=== PATIENT | female | born 1995 | race Caucasian/White ===

== ENCOUNTER 2017-12-02 16:01 | Emergency (ER) | payer MEDICAID, SELFPAY ==
[2017-12-02 16:03] VITALS: BP 157/96; PULSE 138; RESP 20; TEMP 37.1; O2SAT 92; BMI 46.1
[2017-12-02 16:25] VITALS: O2SAT 100
[2017-12-02 16:38] VITALS: BP 125/77; PULSE 82; RESP 22
[2017-12-02 16:54] VITALS: PULSE 106; RESP 24
[2017-12-02] MEDS: Ipratropium/Albuterol Sulfate 3 ML AMPUL.NEB INHALATION (16:54)
[2017-12-02] MEDS: Albuterol 2.5 MG/3 ML VIAL.NEB. INHALATION (16:55)
[2017-12-02] MEDS: 0.9% Normal Saline 1,000 ML 1000 ML IV (16:58)
[2017-12-02] MEDS: Ondansetron 4 MG/2 ML Vial IV (16:58)
[2017-12-02] MEDS: MethylPREDNISolone 125 MG/2 ML Vial IV (16:58)
--- NOTE | 2017-12-02 17:15 | RAD_ITS ---
STUDY: X-RAY CHEST REASON FOR EXAM: Female, 22 years old. Cough, shortness of breath TECHNIQUE: Frontal and lateral views of the chest were obtained. COMPARISON: June 19, 2012 FINDINGS: The lungs are underaerated. There are no focal airspace opacities. There is no demonstrated pleural abnormality. The cardiac silhouette is normal in size. The mediastinum and hilar regions are unremarkable. Normal visualized pulmonary arteries. Normal visualized aortic arch and descending thoracic aorta. The thoracic spine is unremarkable. The visualized ribs, clavicles, and shoulders are unremarkable. There is no demonstrated abnormality of the visualized upper abdomen. RAD/Chest PA and Lateral IMPRESSION: There is no evidence of focal consolidation or pleural effusion. Electronically Signed: Raina Rose MD at 17:36 EST Tel Direct: [phone], Service support ,
--- NOTE | 2017-12-02 18:28 | ED.VISSUMM ---
- ER Visit Summary Date of Service: 12/02/17 Chief Complaint: Cough and wheezing History of Present Illness: The patient is a 22 F currently 14 weeks due April 29. Patient states that she has had a cough and wheezing for the last 3 days. Gradual. She denies any chest pain. She denies any hemoptysis. Is also had some mild nausea vomiting. This is her first . She denies any abdominal pain. She denies any vaginal bleeding or dysuria. Subjectively she has felt feverish and chilled. Physical Examination: Young female no acute distress. Vital signs are stable she is tachycardic to 138. Her pulse ox is 90% on room air no hypoxia. H EENT exam unremarkable. Neck nontender no JVD. Lungs prolonged respiratory phase and wheezing throughout. No rales or rhonchi. Dry cough. Heart tachycardic rate about 130 no murmurs. Abdomen soft nontender nondistended no giving way or masses gravid nontender uterus. Extremities moves all 4. Calves nontender no edema no cords. Neurologically she is awake and alert. Test Results: Chest x-ray 2 views show no acute abnormality read both myself the radiologist. heart tones are 142. Emergency Department Course and Treatment: This is doing much better on repeat exam at 1820. She was given a liter normal saline. IV Zofran. Her nausea is resolved. She is given IV Solu-Medrol and aerosols and her wheezing is resolved. She feels comfortable being discharged to home. Clinically she looks much better. Treatment Plan: Discharged home with prednisone 40 mg a day for 1 week. Proventil inhaler. And Zofran for nausea. Treated for viral URI with bronchospasm. She will follow-up with her primary care physician and [employer] physician called Dr. Colmenares at the [facility]. Return if worse. Disposition: Discharge Impression: Acute viral URI with bronchospasm Nausea and vomiting 14 weeks This note was generated with Grouper dictation software. It may contain incorrect words, spelling, and punctuation that were not noted in review of the chart prior to signing ED Disposition - Plan for ED Patient: Chief Complaint: Cough Referrals: Eli Matos, OLIVIA-C [Primary Care Provider] -
--- NOTE | 2017-12-02 18:33 | ED.DCSUM_ITS ---
- ER Visit Summary Date of Service: 12/02/17 Chief Complaint: Cough and wheezing History of Present Illness: The patient is a 22 F currently 14 weeks due April 29. Patient states that she has had a cough and wheezing for the last 3 days. Gradual. She denies any chest pain. She denies any hemoptysis. Is also had some mild nausea vomiting. This is her first . She denies any abdominal pain. She denies any vaginal bleeding or dysuria. Subjectively she has felt feverish and chilled. Physical Examination: Young female no acute distress. Vital signs are stable she is tachycardic to 138. Her pulse ox is 90% on room air no hypoxia. H EENT exam unremarkable. Neck nontender no JVD. Lungs prolonged respiratory phase and wheezing throughout. No rales or rhonchi. Dry cough. Heart tachycardic rate about 130 no murmurs. Abdomen soft nontender nondistended no giving way or masses gravid nontender uterus. Extremities moves all 4. Calves nontender no edema no cords. Neurologically she is awake and alert. Test Results: Chest x-ray 2 views show no acute abnormality read both myself the radiologist. heart tones are 142. Emergency Department Course and Treatment: This is doing much better on repeat exam at 1820. She was given a liter normal saline. IV Zofran. Her nausea is resolved. She is given IV Solu-Medrol and aerosols and her wheezing is resolved. She feels comfortable being discharged to home. Clinically she looks much better. Treatment Plan: Discharged home with prednisone 40 mg a day for 1 week. Proventil inhaler. And Zofran for nausea. Treated for viral URI with bronchospasm. She will follow-up with her primary care physician and [employer] physician called Dr. Colmenares at the women's [facility]. Return if worse. Disposition: Discharge Impression: Acute viral URI with bronchospasm Nausea and vomiting 14 weeks This note was generated with L2C dictation software. It may contain incorrect words, spelling, and punctuation that were not noted in review of the chart prior to signing ED Disposition - Plan for ED Patient: Chief Complaint: Cough Referrals: Eli Matos, OLIVIA-C [Primary Care Provider] -
--- NOTE | 2017-12-02 18:33 | ED.DEP ---
ED Disposition - Plan for ED Patient: Disposition: Home or Assisted Living Chief Complaint: Cough Instructions: ED Upper Resp Infec No Abx Tx Prescriptions: Albuterol Sulfate [Proventil Hfa] 6.7 gm IH Q2H PRN PRN #1 hfa.[email or web address] PRN Reason: Wheezing Ondansetron [Zofran Odt] 4 mg PO Q4H PRN PRN #10 tab.rapdis PRN Reason: Nausea Omeprazole [Prilosec] 40 mg PO DAILY 7 Days #30 cap Prednisone [Deltasone] 40 mg PO DAILY 7 Days tab Referrals: Eli Matos, FUR SCRAPER-C [Primary Care Provider] - As Needed Additional Instructions: Fluids and rest. Zofran as needed for nausea he may swallow the pill or let it dissolve underneath her tongue. Ventolin inhaler 1-2 puffs every 2 hours as needed for wheezing. Prednisone 40 mg a day for wheezing. She should progressively improved. Most likely has a viral syndrome. If you are feeling worse return. Otherwise follow-up with your physician next week.
[2017-12-02 18:36] VITALS: BP 151/77; PULSE 129; RESP 20; O2SAT 96
--- NOTE | 2017-12-02 18:42 | DCINST.ED_ITS ---
ED Disposition - Plan for ED Patient: Disposition: Home or Assisted Living Chief Complaint: Cough Instructions: ED Upper Resp Infec No Abx Tx Prescriptions: Albuterol Sulfate [Proventil Hfa] 6.7 gm IH Q2H PRN PRN #1 [email or web address] PRN Reason: Wheezing Ondansetron [Zofran Odt] 4 mg PO Q4H PRN PRN #10 tab.rapdis PRN Reason: Nausea Omeprazole [Prilosec] 40 mg PO DAILY 7 Days #30 cap Prednisone [Deltasone] 40 mg PO DAILY 7 Days tab Referrals: Eli Matos, AUTO BODY TECHNICIAN-C [Primary Care Provider] - As Needed Additional Instructions: Fluids and rest. Zofran as needed for nausea he may swallow the pill or let it dissolve underneath her tongue. Ventolin inhaler 1-2 puffs every 2 hours as needed for wheezing. Prednisone 40 mg a day for wheezing. She should progressively improved. Most likely has a viral syndrome. If you are feeling worse return. Otherwise follow-up with your physician next week.
== END 2017-12-02 18:58 | disposition home or self-care (01) ==
PROVIDERS: Emergency Provider Emergency Medicine; Family Provider Nurse Practitioner Family; PCP Nurse Practitioner Family
DX: O98.512 Other viral diseases complicating pregnancy, second trimester (principal); J06.9 Acute upper respiratory infection, unspecified; J98.01 Acute bronchospasm; O26.892 Other specified pregnancy related conditions, second trimester; R11.2 Nausea with vomiting, unspecified; O99.512 Diseases of the respiratory system complicating pregnancy, second trimester; J45.909 Unspecified asthma, uncomplicated; O99.332 Smoking (tobacco) complicating pregnancy, second trimester; F17.200 Nicotine dependence, unspecified, uncomplicated; Z3A.14 14 weeks gestation of pregnancy
CPT/HCPCS: 71046; 94640; 96361; 96374; 96375; 99283; J7030; A4216; J2405

== ENCOUNTER 2018-04-21 16:00 | Outpatient (CLI) | payer MEDICAID, SELFPAY ==
[2018-04-21 16:30] VITALS: BMI 49.1
--- NOTE | 2018-04-21 17:10 | CASEMGMT ---
Social Work Note Labor and Delivery Unit Consulted by: MOHAMUD Dunlap as RN became aware that patient is considering an adoption plan for unborn child. Summary: Chart briefly reviewed. Met with patient in room, asking patient's minor aged sister to leave the room. MOB reports is unplanned, that reported father of baby (FOB) is not really involved at this time and that this man has not been doing the greatest or healthiest things in life. Patient reports intercourse was consensual. MOB reports to be having mixed emotions about keeping and parenting , that MOB is worried about being able to provide for the child and wants more for the child than what MOB imagines will be struggling to provide. Patient reports that her mother is against an adoption plan, but MOB continues to think of adoption as an option. Patient reports has not made any contact with an adoption agency, as patient reports is afraid may change mind and does not want to get adoptive parents hopes up. Patient reports has been coping by just not thinking about the dilemma. Patient reports to be having mixed emotions and some sadness. Patient denies any thoughts, plans, intent for suicide and denies any thoughts of harm to others. Patient does endorse some marijuana usage early in , prior to knowledge. Patient reports quit using this substance when realized that was . Discussed with patient that if patient is sincerely thinking of adoption, it may be a good idea to at least find out what the options are, that talking to an agency does not commit patient to making a plan, just helps patient to be more informed. Discussed that getting information now, may make the decision less traumatic once baby is delivered, that either decision has the potential to be hard but if patient is not rushed into decision making then patient has the potential to make more informed choices and not be so rushed. Discussed that ultimately patient's decision to keep and parent or make an adoption plan is patient's own choice, no one else, that hospital staff is here to support patient. After discussion, patient voiced that would be interested in having some information to look at regarding adoption. Provided patient with question/answer booklet on adoption, including the different types of adoption (private and agency), as well as brochures on some agencies providing pre-adoption, adoption, and post-adoption services. Provided this public relations writer's card for MOB to call prior to delivery, should MOB have any questions. Patient expressed thanks for social work assistant coming to talk to patient and listening to patient's thoughts and feelings. Educated patient that regardless of patient's decision regarding the baby, there will be a social work consult at time of delivery. Patient expressed understanding. Assessment: Patient pleasant, cooperative, but with sad mood. Patient tearful when discussing mixed emotions, as well as patent's family not being in support of patient even considering adoption. Patient accepting of resources offered. Patient does report to have needed supplies for baby at home, that patient's mother has been helping to gather supplies. No other services requested at this time. Anticipating social work consult at time of delivery. -VANDANA Cross, UNIT OPERATOR
[2018-04-21 17:13] LABS: Mucous, Urine 0 SEEN /hpf (<or=2+); Red Blood Cells-Urine 0 SEEN /hpf (0-5)
[2018-04-21 17:31] LABS: Color, Urine Yellow (Yellow); Glucose, Dipstick Normal (Normal); Ketone-Dipstick Negative (Negative); Leukocyte Esterase-Dipstick 25 /ul (Negative); Nitrite-Dipstick Negative (Negative); Occult Blood-Urine Negative /ul (Negative); Protein-Dipstick Negative (Negative); Specific Gravity, Urine 1.005 (1.002-1.030); Urine Bilirubin Dipstick Negative (Negative); Urine Clarity Sl. Cloudy (Clear); Urine Urobilinogen Normal (Normal)
[2018-04-21 17:56] LABS: Bacteria 1+ /hpf (None Seen); Squamous Epithelial Cells - UA 0-5 SEEN /hpf (5-10); White Blood Cells 0-5 SEEN /hpf (0-5)
--- NOTE | 2018-05-23 11:47 | OB.TRI.NOTE ---
- Problem List (1) Back pain affecting Status: Acute History of Present Illness Date of Service: 04/21/18 Was patient seen by the physician?: No Reason For Visit: R/O LABOR Date of Service: 04/21/18 Allergies No Known Allergies Allergy (Verified 05/10/18 18:25) - Pertinent Past Medical History Medical History: Past Medical History (Last Updated 05/06/18 @ 12:23 by Gene Briones) Depression Obesity NST - FHR Rate Baby A Baseline: 140 Variability:: Moderate Accelerations:: 15 x 15 Decelerations:: None NST Reactive:: Yes FHR Category:: Category I Uterine Activity:: None Impression/Plan A: False labor P: 1) Ok to send home. NST reactive, no contractions
== END 2018-04-21 19:10 | disposition home or self-care (01) ==
LOC: WPOUT 16:26 → WP 16:26
PROVIDERS: Advanced Practice Midwife; Family Provider Nurse Practitioner Family; PCP Nurse Practitioner Family; Visit Provider Obstetrics & Gynecology
DX: O47.9 False labor, unspecified (principal); O99.210 Obesity complicating pregnancy, unspecified trimester; E66.9 Obesity, unspecified; Z3A.00 Weeks of gestation of pregnancy not specified
CPT/HCPCS: 59025; 59050; 81001; 87086; 87088; 99218; G0378

== ENCOUNTER 2018-05-06 12:10 | Inpatient (IN) | payer MEDICAID, SELFPAY ==
--- NOTE | 2018-05-06 12:22 | PCM.HP.OB ---
History Date of Admission: 05/06/18 Final LUIS EDUARDO: 04/29/18 Gestational age: 41 Weeks and 0 Days History of this : This is a 23 year-old, G [], P [], at weeks gestational age. Allergies No Known Allergies Allergy (Verified 12/02/17 16:02) Home Medications: Home Medications Albuterol Sulfate [Proventil Hfa] 6.7 gm IH Q2H PRN PRN #1 hfa.aer.ad 12/02/17 Cyanocobalamin [Vitamin B12] 500 mcg PO DAILY@0800 12/02/17 Magnesium Oxide [Mag-Oxide Magnesium] 200 mg PO DAILY 12/02/17 Omeprazole [Prilosec] 40 mg PO DAILY 7 Days #30 cap 12/02/17 Ondansetron [Zofran Odt] 4 mg PO Q4H PRN PRN #10 tab.rapdis 12/02/17 Pnv95/Ferrous Fumarate/FA [ Vitamin Tablet] 1 each PO DAILY 12/02/17 Prednisone [Deltasone] 40 mg PO DAILY 7 Days tab 12/02/17 Smoking Status: Current every day smoker Substance Use Type: Marijuana Number of Fetus(es): 1 Heart Tracin with moderate variability TOCO Analysis: just on monitor, not tracing well History Past Pregnancies: Past Pregnancies Delivery Date Name GA/Weeks Outcome Route Weight Infant Gender Labor Length Anesthesia Delivery Location Provider FOB Labs: see [facility] H&P Physical Exam General: Alert, Oriented x3 Abdomen: Soft, Non Tender, Non-Distended, Gravid Cervix Dilation (cm): 5 - AROM clear fluid Station: -2 Effacement (%): 80 Assessment/Plan This is a 23 year-old female in labor @ 41 weeks Admit to L&D GBS negative EFW less than 4500g, adequate pelvis Pain - epidural Routine care H/o marijuana - check utox Possible adoption mentionned in notes - will need social work consult
[2018-05-06 12:26] VITALS: BMI 49.4
[2018-05-06] MEDS: Lactated Ringers 1,000 ML 50 ML IV ×2 (12:45→18:23)
[2018-05-06] MEDS: Nalbuphine 10 MG/ML Ampul IV (13:04)
[2018-05-06 13:09] LABS: Hematocrit 31.4 % (37-47); Hemoglobin 10.6 g/dl (12.0-15.0); Mean Corp Hgb Conc 33.8 g/gl (32-36); Mean Corpuscular Hgb 28.8 pg (27.0-32.0); Mean Corpuscular Volume 85.3 fL (81-99); Mean Platelet Vol. 10.9 fl (6.2-12.0); Platelet Count 332 K/mm3 (150-450); RBC Distribution Width CV 14.1 % (11.6-14.6); RBC Distribution Width SD 42.6 fl (35.1-43.9); Red Blood Count 3.68 M/mm3 (4.2-5.4); Scan Indicated on CBC? Y/N NO; White Blood Count 13.8 K/mm3 (4.4-11.0)
[2018-05-06] MEDS: Ondansetron 4 MG/2 ML Vial IV (13:42)
[2018-05-06] MEDS: fentaNYL-bupivacaine (epidural) 100 ML BAG EPIDURAL ×2 (14:17→19:44)
[2018-05-06] MEDS: Oxytocin 30 units/NS 500 ml 30 UNITS/500 ML IV.SOLN IV (16:36)
[2018-05-06 17:32] LABS: Amphetamine Urine VISTA NEGATIVE (<1000 ng/mL); Barbiturate Urine VISTA NEGATIVE (< 200 ng/mL); Benzodiazepine Urine VISTA NEGATIVE (< 200 ng/mL); Cocaine Urine VISTA NEGATIVE (< 300 ng/mL); Ecstacy Urine VISTA NEGATIVE (< 500 ng/mL); Methadone Urine VISTA NEGATIVE (< 300 ng/mL); PCP Urine VISTA NEGATIVE (< 25 ng/mL); THC Urine VISTA NEGATIVE (< 50 ng/mL); Vista UDS pH Range 6
[2018-05-06] MEDS: Oxytocin 30 units/NS 500 ml 30 UNITS/500 ML IV.SOLN 334 UNITS IV (20:32)
[2018-05-06] MEDS: Oxytocin 30 units/NS 500 ml 30 UNITS/500 ML IV.SOLN 167 UNITS IV (21:02)
--- NOTE | 2018-05-06 21:02 | PCM.OB.VAG ---
Vaginal Delivery Maternal Presentation: Active Labor Amniotic Membrane Rupture Type: Artificial Amniotic Fluid Description: Clear Final LUIS EDUARDO: 04/29/18 Gestational age: 41 Weeks and 0 Days Date of Procedure: 05/06/18 Pre-Operative Diagnosis: (1) Labor (2) Postdates Post-Operative Diagnosis: Same Surgery/ Procedure Performed: Spontaneous Vaginal Delivery Type of Anesthesia: Epidural Description of Procedure: Patient in stirrups when c/c/+3. She pushed & delivered the head. Gentle traction placed on the head to allow delivery of anterior & posterior shoulders. No excess traction placed on the head. Body delivered & infant placed on maternal abdomen. 3vc clamped & cut in delayed fashion. Placenta delivered with gentle traction. Good uterine tone obtained. Presentation: JONY Placental Delivery Description: Expressed Placenta Disposition: [facility] Cord Vessel Description: 3 Vessels Cord Entanglement: None Estimated Blood Loss: 350ml Infant A gender: Male (1 minute): 8 (5 minute): 9 Episiotomy Description: None Laceration: Vaginal Extension/lac - repaired with 3-0 vicryl Medications given after delivery: IV Pitocin Complications: None
[2018-05-06] MEDS: Ibuprofen 600 MG Tablet PO (23:39)
[2018-05-07 03:50] VITALS: BP 105/57; PULSE 83; RESP 16; TEMP 36.1
[2018-05-07] MEDS: Ibuprofen 600 MG Tablet PO ×3 (08:43→23:27)
[2018-05-07 09:00] VITALS: BP 135/74; PULSE 65; RESP 18; TEMP 36.2
--- NOTE | 2018-05-07 10:29 | PCM.PN.OB ---
Subjective: No complaints - Physical Exam General: Alert, Oriented x3 Abdomen: Soft, Non Tender, Non-Distended - ff mid & below umb Extremities: No Calf Tenderness Vital Signs Temp Pulse Resp BP 97.2 F L 65 18 135/74 H 05/07/18 09:00 05/07/18 09:00 05/07/18 09:00 05/07/18 09:00 Oxygen Delivery Method Room Air Weight: 245 lb Body Mass Index (BMI) 49.4 Intake and Output for Last 24 Hours 05/05/18 05/06/18 05/07/18 23:59 23:59 23:59 Intake Total 1845 / 1845 Output Total 600 / 600 Balance 1245 / 1245 Laboratory Tests Past 24 Hrs 05/06/18 05/06/18 05/06/18 12:30 12:30 16:30 WBC 13.8 H RBC 3.68 L Hgb 10.6 L Hct 31.4 L MCV 85.3 MCH 28.8 MCHC 33.8 RDW 14.1 RDW Differential 42.6 Plt Count 332 MPV 10.9 Urine Opiates Screen NEGATIVE Urine Methadone Screen NEGATIVE Ur Barbiturates Screen NEGATIVE Ur Phencyclidine Scrn NEGATIVE Ur Amphetamines Screen NEGATIVE U Methamphetamin-MDMA NEGATIVE U Benzodiazepines Scrn NEGATIVE Urine Cocaine Screen NEGATIVE U Cannabinoids Screen NEGATIVE Ur Drug Screen Comment Blood Type B POSITIVE Antibody Screen NEGATIVE Medical Necessity - Tobacco Use Smoking Status: Light Smoker (<10/day) Assessment/Plan PPD#1 Routine care
--- NOTE | 2018-05-07 10:33 | PCM.DCVAG ---
Discharge Diet: No Restrictions Discharge Activity: May Shower May resume sexual activity in: 6 weeks Weight Bearing Status: Weight bearing as tolerated Additional Instructions: If you experience any of the following, contact your healthcare provider. Bleeding that soaks a pad every hour for 2 hours Fever 100.4 or higher Unrelieved incision or abdominal pain Swelling, redness, discharge or bleeding from your incision or episiotomy site Your incision begins to separate Problems urinating (including inability to urinate or burning while urinating). Visual changes Severe headache Flu-like symptoms Pain or redness in one of both of your breasts Pain, warmth, tenderness or swelling in your legs, especially the calf area Frequent nausea and vomiting Symptoms of depression or anxiety If you experience any of the following, call 911 or go to the nearest Emergency Room. Chest pain Problems breathing Seizure activity Partial or complete paralysis of a body part, slurred speech, weakness or drooping of the face, or a sudden inability to walk or hold your balance Allergies/Adverse Reactions: Allergies No Known Allergies Allergy (Verified 12/02/17 16:02) Medications to take at Discharge Albuterol Sulfate [Proventil Hfa] 6.7 gm IH Q2H PRN PRN #1 hfa.aer.ad 12/02/17 Primary Care Physician: Eli Matos NP-C [Primary Care Provider] - Test Results: Test results from this visit will be discussed in further detail at your follow-up appointment, if applicable.
--- NOTE | 2018-05-07 10:34 | DCINST_ITS ---
Discharge Diet: No Restrictions Discharge Activity: May Shower May resume sexual activity in: 6 weeks Weight Bearing Status: Weight bearing as tolerated Additional Instructions: If you experience any of the following, contact your healthcare provider. * Bleeding that soaks a pad every hour for 2 hours * Fever 100.4 or higher * Unrelieved incision or abdominal pain * Swelling, redness, discharge or bleeding from your incision or episiotomy site * Your incision begins to separate * Problems urinating (including inability to urinate or burning while urinating) . * Visual changes * Severe headache * Flu-like symptoms * Pain or redness in one of both of your breasts * Pain, warmth, tenderness or swelling in your legs, especially the calf area * Frequent nausea and vomiting * Symptoms of depression or anxiety If you experience any of the following, call 911 or go to the nearest Emergency Room. * Chest pain * Problems breathing * Seizure activity * Partial or complete paralysis of a body part, slurred speech, weakness or drooping of the face, or a sudden inability to walk or hold your balance Allergies/Adverse Reactions: Allergies No Known Allergies Allergy (Verified 12/02/17 16:02) Medications to take at Discharge Albuterol Sulfate [Proventil Hfa] 6.7 gm IH Q2H PRN PRN #1 hfa.aer.ad 12/02/17 Primary Care Physician: Eli Matos NP-C [Primary Care Provider] - Test Results: Test results from this visit will be discussed in further detail at your follow- up appointment, if applicable.
[2018-05-07] MEDS: Acetaminophen 500 MG Tablet 1000 MG PO (11:04)
[2018-05-07 13:45] VITALS: BP 126/70; PULSE 73; RESP 18; TEMP 36.7
[2018-05-07 15:17] VITALS: BP 132/77; PULSE 77; RESP 18; TEMP 36.6
[2018-05-07 20:33] VITALS: BP 124/57; PULSE 77; RESP 16; TEMP 36.2
[2018-05-08 02:20] VITALS: BP 136/72; PULSE 101; RESP 18; TEMP 36.6
[2018-05-08] MEDS: Acetaminophen 500 MG Tablet 1000 MG PO (07:57)
--- NOTE | 2018-05-08 12:31 | PCM.PN.OB ---
Subjective: Doing well per patient and nursing staff. Ambulating and taking PO without difficulty. and getting assistance from services. Does not plan for adoption at this time. Family supportive of patients decision to keep baby. Denies any headaches, visual changes, chest pain, shortness of breath,leg pain, increased vaginal bleeding or blood clots. Planning D/C home today. - Physical Exam General: Alert, Oriented x3, Cooperative HEENT: Atraumatic, Normocephalic Lungs: Clear to auscultation, No rhonchi, No wheeze Cardiovascular: Regular rate, Regular Rhythm, No murmurs Abdomen: Bowel Sounds Present, Soft, - - Fundus firm below U Extremities: No edema, - - Roxy's negative bilaterally. Psych/Mental Status: Normal Affect, Appropriate Vital Signs Temp Pulse Resp BP 97.8 F 101 H 18 136/72 H 05/08/18 02:20 05/08/18 02:20 05/08/18 02:20 05/08/18 02:20 Oxygen Delivery Method Room Air Weight: 245 lb Body Mass Index (BMI) 49.4 Intake and Output for Last 24 Hours 05/06/18 05/07/18 05/08/18 23:59 23:59 23:59 Intake Total 1845 / 1845 Output Total 600 / 600 Balance 1245 / 1245 Medical Necessity - Tobacco Use Smoking Status: Light Smoker (<10/day) Assessment/Plan A: PPD#2 P: 1) Discharge home. Discharge instructions given. 2) instructions given and resources provided. 3) Will take baby home and does not desire adoption at this time.
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
[2018-05-08 15:18] VITALS: BP 144/75; PULSE 94; RESP 16; TEMP 36.6; O2SAT 96
[2018-05-08] MEDS: Ibuprofen 600 MG Tablet PO (15:40)
[2018-05-08 20:16] VITALS: BP 141/81; PULSE 106; RESP 16; TEMP 36.3; O2SAT 97
--- NOTE | 2018-05-09 15:30 | CASEMGMT ---
Social Work Note Labor and Delivery Unit Referral to [facility] ([facility]) due to substance exposed , as information was reported to staff and this selling underwriter by the mother of baby (MOB). Brief maternal and histories provided. Referral given to Rachel Isaac at [facility]. [facility] referral was made via the [facility]'s secure web based referral form. Will monitor for meconium drug screens. Otherwise no other referrals requested or indicated. -VANDANA Cross, CASINO FLOOR SUPERVISOR
--- NOTE | 2018-05-23 11:08 | CASEMGMT ---
Social Work Note Labor and Delivery Unit Meconium drug screen results are back and negative for any drugs of abuse. Call placed to patient/mother of baby (MOB) at [phone] and message left to call this scenario writer for results, as this was the request of MOB to be informed of outcomes. MOB called right back so updated. MOB reports did make it to her mental health follow up and will be continuing with [facility]. MOB thanked scenario writer for phone call today. No other referrals or services are requested or indicated. -VANDANA Cross, GENERAL MANAGER FARM
== END 2018-05-08 20:30 | disposition home or self-care (01) | DRG 373 ==
PROVIDERS: Admitting Provider Obstetrics & Gynecology; Family Provider Nurse Practitioner Family; PCP Nurse Practitioner Family; Visit Provider Obstetrics & Gynecology
DX: O48.0 Post-term pregnancy (principal); Z37.0 Single live birth; Z3A.41 41 weeks gestation of pregnancy; O99.334 Smoking (tobacco) complicating childbirth; F17.200 Nicotine dependence, unspecified, uncomplicated
CPT/HCPCS: 59050; 80307; 85027; 86850; 86900; 99218; J7120; G0378; J2405

== ENCOUNTER 2018-05-10 18:24 | Emergency (ER) | payer MEDICAID, SELFPAY ==
[2018-05-10 18:26] VITALS: BP 127/76; PULSE 101; PULSE 103; RESP 17; RESP 18; TEMP 36.8; O2SAT 99; BMI 46.5
--- NOTE | 2018-05-10 19:33 | ED.VISSUMM ---
- ER Visit Summary Date of Service: 05/10/18 Chief Complaint: Right breast pain History of Present Illness: The patient is a 23 F who presents with right breast pain that began yesterday. Patient states she noted some redness today. Patient states the pain has gradually gotten worse. Patient states she is breast-feeding and her child is tongue tied. Patient states her child is having some difficulty feeding because of being tongue tied. Patient denies any fevers or chills. Patient admits to some nausea but denies any vomiting. Patient states her pain is worse when she touches her breath. Physical Examination: Vital signs are stable. Patient is afebrile. Patient is in no acute distress. Oral mucosa is pink and moist. Neck is supple there is no JVD noted. Heart was regular rate and rhythm. Lungs are clear and equal bilaterally. Skin is warm dry. There is some erythema and warmth over the right breast. There is no discharge or drainage noted. Cranial nerves II through XII are intact. There are no focal motor or sensory deficits noted. Emergency Department Course and Treatment: Patient was given a prescription for Keflex. Patient was instructed to follow-up with her primary care physician in 5-7 days. Patient was instructed to breast-feed from the left breast only. Patient understood and was agreeable with the plan. All questions were answered. Disposition: Discharged home Impression: Mastitis right breast This note was generated with [employer] dictation software. It may contain incorrect words, spelling, and punctuation that were not noted in review of the chart prior to signing ED Disposition - Plan for ED Patient: Disposition: Home or Assisted Living Chief Complaint: Chest Other Diagnosis: Mastitis in female Instructions: ED Breast Infec Prescriptions: Cephalexin [Keflex] 500 mg PO Q6 #40 cap Referrals: Eli Matos NP-C [Primary Care Provider] -
[2018-05-10 19:40] VITALS: BP 120/60; PULSE 75; RESP 18; O2SAT 98
== END 2018-05-10 19:41 | disposition home or self-care (01) ==
PROVIDERS: Emergency Provider Emergency Medicine; Family Provider Nurse Practitioner Family; PCP Nurse Practitioner Family
DX: N61.0 Mastitis without abscess (principal); R11.0 Nausea; F17.200 Nicotine dependence, unspecified, uncomplicated
CPT/HCPCS: 99282

== ENCOUNTER 2018-07-04 20:47 | Emergency (ER) | payer MEDICAID, SELFPAY ==
[2018-07-04 20:48] VITALS: BP 128/105; PULSE 110; RESP 16; TEMP 37.7; O2SAT 98; BMI 41.3
[2018-07-04 21:52] VITALS: BP 146/89
--- NOTE | 2018-07-04 22:23 | ED.VISSUMM ---
- ER Visit Summary Date of Service: 07/04/18 Chief Complaint: Dental pain and right ear pain History of Present Illness: The patient is a 23 F who states that she had some teeth break when she was . They did not cause a problem until 2 days ago when she started developing right lower dental pain. She is actually scheduled to have her teeth extracted in 2 weeks. She is also complaining of right ear pain with yellow drainage. She denies fever or chills. Physical Examination: Blood pressure is 146/89, temperature 99.8 TA, heart rate 110. Patient sitting upright in bed. She is intermittently tearful. Head neck examination reveals minimal right facial edema. No significant facial erythema. Right ear canal is edematous with yellow discharge consistent with otitis externa. Left TM is clear. Intraoral examination reveals right first molar on the mandibular surface to be decayed with obvious caries. There is mild surrounding gum edema. There is no trismus. Normal posterior pharynx exam is noted. Heart is regular rate and rhythm without murmur. Lung sounds are clear. Test Results: [] Emergency Department Course and Treatment: Patient is given Otocort suspension drops for her ear. She is given pen VK, Naprosyn, and [place]. She is to follow-up with her dentist as scheduled. Treatment Plan: [] Disposition: Discharge Impression: 1. Right otitis externa 2. Odontalgia This note was generated with [employer] dictation software. It may contain incorrect words, spelling, and punctuation that were not noted in review of the chart prior to signing ED Disposition - Plan for ED Patient: Disposition: Home or Assisted Living Chief Complaint: Dental Instructions: ED Tooth Pain, ED Otitis Externa Prescriptions: Hydrocodone Bitart/Apap 5-325 [[place] 5MG-325MG] 1 tablet PO Q4H PRN PRN 2 Days #10 tablet PRN Reason: Pain Penicillin V Potassium 500 mg PO 4X/DAY #40 tablet Referrals: Eli Matos NP-C [Primary Care Provider] - Additional Instructions: Ear drops: 5 drops to affected ear 4x/day for 7 days
--- NOTE | 2018-07-04 22:23 | ED.DEP ---
ED Disposition - Plan for ED Patient: Disposition: Home or Assisted Living Chief Complaint: Dental Instructions: ED Tooth Pain, ED Otitis Externa Prescriptions: Hydrocodone Bitart/Apap 5-325 [[place] 5MG-325MG] 1 tablet PO Q4H PRN PRN 2 Days #10 tablet PRN Reason: Pain Penicillin V Potassium 500 mg PO 4X/DAY #40 tablet Referrals: Eli Matos, SUPERVISOR CORE DRILLING-C [Primary Care Provider] - Additional Instructions: Ear drops: 5 drops to affected ear 4x/day for 7 days
--- NOTE | 2018-07-04 22:26 | DCINST.ED_ITS ---
ED Disposition - Plan for ED Patient: Disposition: Home or Assisted Living Chief Complaint: Dental Instructions: ED Tooth Pain, ED Otitis Externa Prescriptions: Hydrocodone Bitart/Apap 5-325 [[place] 5MG-325MG] 1 tablet PO Q4H PRN PRN 2 Days #10 tablet PRN Reason: Pain Penicillin V Potassium 500 mg PO 4X/DAY #40 tablet Referrals: Eli Matos, FUSE ASSEMBLER-C [Primary Care Provider] - Additional Instructions: Ear drops: 5 drops to affected ear 4x/day for 7 days
[2018-07-04] MEDS: HYDROcodone Bitartrate/Apap 5/325 Tablet PO (22:33)
[2018-07-04] MEDS: Penicillin Vk 250 MG Tablet 500 MG PO (22:33)
[2018-07-04] MEDS: Naproxen 500 MG Tablet PO (22:33)
[2018-07-04] MEDS: Neomycin Sulfate/Polymyxin/Hc Susp 10 ML Bottle 4 DRP OTIC (22:37)
== END 2018-07-04 22:55 | disposition home or self-care (01) ==
PROVIDERS: Emergency Provider Emergency Medicine; Family Provider Nurse Practitioner Family; PCP Nurse Practitioner Family
DX: H60.91 Unspecified otitis externa, right ear (principal); K02.9 Dental caries, unspecified; K08.89 Other specified disorders of teeth and supporting structures; J45.909 Unspecified asthma, uncomplicated; Z72.0 Tobacco use
CPT/HCPCS: 99284

== ENCOUNTER 2019-12-31 21:33 | Emergency (ER) | payer MEDICAID, SELFPAY ==
[2019-12-31 21:34] VITALS: BP 155/99; PULSE 85; RESP 14; TEMP 36.6; O2SAT 98; BMI 48.1
--- NOTE | 2019-12-31 22:12 | ED.DCSUM_ITS ---
History of Present Illness Chief Complaint: Diarrhea Detail of Chief Complaint: blood in stool Informant: Patient - Abdominal Pain/Flank Pain Onset: Today Timing: Intermittent - couple times Quality: Sharp Location: Diffuse Current Severity: Moderate Maximum Severity: Moderate Worsened by: Not Worsened By: Food Relieved by: Nothing - Nausea/Vomiting/Emesis GI Symptom: Nausea. Negative for: Vomiting Onset: Today Severity: Moderate - Diarrhea/Melena/Hematochezia GI Symptom: Diarrhea, Hematochezia - small amts, mixed in w/ stool. Negative for: Melena Stool Quality: Loose Severity: Mild Associated Symptoms: Negative for: Dysuria, Frequency, Hematuria, Urgency Narrative: Patient states she has been having abdominal pain like this since she was 12 years old. She has been seen in the ER for it but never followed up for it she states. Today for the first time she had some blood mixed in with her stool. She denies having any perianal discomfort like an external hemorrhoid would give her. She denies any urinary or vaginal complaints. She delivered a baby 3 weeks ago and during her she had constipation issues. She has been nauseated today but no vomiting. She does not have pain in her abdomen or vomiting when she eats. She has never had an EGD or colonoscopy. She is supposed to be on thyroid medication but states she does not take it. She is on Neurontin for fibromyalgia. - Past Medical History (1) Fibromyalgia Status: Chronic (2) Hypothyroidism Status: Chronic Past Medical History - Allergies and Home Meds Allergies/Adverse Reactions: Allergies No Known Allergies Allergy (Verified 12/31/19 21:34) Primary Care Physician: Eli Matos NP-C [Primary Care Provider] - Surgical History: - - No abdominal surgeries Lives: With Family Smoking Status: Current every day smoker Review of Systems General: Denies: Chills, Fever, Sweats Eyes: Denies: Visual changes - bilaterally, Diplopia ENT: Denies: Bilateral ear pain, Rhinorrhea, Sore throat Cardiovascular: Denies: Chest pain, Palpitations Respiratory: Denies: Dyspnea, Cough, Dyspnea on exertion Gastrointestinal: Reports: Abdominal pain, Nausea, Diarrhea, Hematochezia. Denies: Vomiting, Melena Genitourinary: Denies: Dysuria, Hematuria, Frequency Musculoskeletal: Denies: Neck pain, Back pain, Swelling, Extremity Pain Skin: Denies: Rash, Wounds Neurological: Denies: Headache, Weakness, Numbness Physical Exam Vital Signs/Narrative: Vital Signs Temp Pulse Resp BP Pulse Ox 12/31/19 21:34 97.9 F 85 14 155/99 H 98 Inital Vital Signs reviewed: Yes General: Well nourished, Well developed, Obese, No Acute Distress - Well- appearing Head: Normocephalic, Atraumatic Eyes: Perrl, EOMI ENT: Moist mucous membranes, No rhinorrhea Neck: Supple, Nontender Cardiovascular: Regular rate, Regular rhythm, No murmurs. Negative for: Tachycardia Respiratory: No distress, CTA bilaterally, Chest nontender Abdomen: Soft, Nondistended, Normal bowel sounds, No masses, Tender - Mild across upper abdomen, nonfocal. Otherwise nontender.. Negative for: Guarding, Rebound tenderness Back: Nontender, Normal Inspection. Negative for: CVA tenderness Extremities: Nontender, No edema. Negative for: Calf Tenderness Skin: Normal color, No rash, No Trauma Neurological: Alert, Oriented x3, Cranial nerves II-XII grossly intact, Normal Strength, Normal Sensation Psychological: Normal affect, Normal Mood Diagnostic/Tx/Re-eval Laboratory Results 12/31/19 12/31/19 22:30 22:30 WBC 10.6 RBC 5.04 Hgb 12.7 Hct 40.0 MCV 79.4 L MCH 25.2 L MCHC 31.8 L RDW Std Deviation 42.2 RDW Coeff of Tyson 14.7 H Plt Count 328 MPV 10.3 Immature Gran % (Auto) 0.300 Neut % (Auto) 63.1 Lymph % (Auto) 27.6 [place] % (Auto) 5.7 Eos % (Auto) 2.9 Baso % (Auto) 0.4 Absolute Neuts (auto) 6.7 Absolute Lymphs (auto) 2.93 Nucleated RBC % 0 Sodium 137 Potassium 3.3 L Chloride 104 Carbon Dioxide 27.0 Anion Gap 6 BUN 12 Creatinine 0.70 Estim Creat Clear Calc 215.13 Est GFR (MDRD) Af Amer 133 Est GFR (MDRD) Non-Af 110 BUN/Creatinine Ratio 17.0 Glucose 90 Calcium 9.7 Total Bilirubin 0.30 AST 20 ALT 31 Alkaline Phosphatase 128 H Total Protein 8.8 H Albumin 4.4 Globulin 4.4 H Albumin/Globulin Ratio 1.0 Lipase 98 - Medical Decision Making Other than of slightly low potassium her labs are unremarkable. Patient was reassured. She feels better after Phenergan, Bentyl orally. She was given a dose of potassium I do not think she needs a prescription for that. I told her a possibility here is internal hemorrhoids, for which I will prescribe her Proctofoam HC with an applicator. However, if she has colitis or some other cause of minor [id number] lower GI bleeding, she will eventually need a colonoscopy for which she needs to follow-up as an outpatient. She does not have any reason to be admitted to the hospital or have a CT scan at this time, I discussed all that she is comfortable with that plan, prescribed Phenergan and Bentyl to use as needed in addition. She has no PCP, so she was referred to the next doctor on the unassigned list. ED Disposition - Plan for ED Patient: Disposition: Home or Assisted Living Diagnosis: Diffuse abdominal pain, Hematochezia, Hypokalemia Instructions: ED Abdominal Pain Unkn Cause Fem, ED Hematochezia Stable Prescriptions: Dicyclomine HCl [Bentyl] 20 mg PO Q6H PRN #20 cap PRN Reason: abdominal pain Transmission Status: Pending to [facility]30 proMETHazine tablet [Phenergan] 25 mg PO Q6H PRN PRN #10 tab PRN Reason: Nausea Transmission Status: Pending to [facility] Hydrocortisone/Pramoxine [Proctofoam-Hc Foam] 10 gm HI DAILY 10 Days #1 foam Transmission Status: Pending to [facility] Referrals: Eli Matos NP-C [Primary Care Provider] - 1-2 Weeks Darrius Villanueva DO [NON CLINICAL AFFILIATE] - 1-2 Weeks
[2019-12-31] MEDS: Dicyclomine 10 MG Capsule 20 MG PO (22:22)
[2019-12-31] MEDS: proMETHazine 25 MG Tablet PO (22:22)
[2019-12-31 22:56] LABS: Absolute Lymphocyte Count 2.93 X10^3/uL (0.83-4.51); Absolute Neutrophil Count 6.7 X10^3/uL (2.0-7.7); Basophil# 0.04 X10^3/uL; Basophil% 0.4 % (0-1); Eosinophil# 0.31 X10^3/uL; Eosinophils% 2.9 % (0-5); Hemoglobin 12.7 g/dL (12.0-15.0); Lymphocyte # 2.93 X10^3/ul (4.0); Lymphocyte % 27.6 % (19-41); Mean Corp Hgb Conc 31.8 g/dL (32-36); Mean Corpuscular Hgb 25.2 pg (27.0-32.0); Mean Corpuscular Volume 79.4 fL (81-99); Mean Platelet Vol. 10.3 fl (6.2-12.0); Monocyte# 0.61 X10^3/uL; Monocyte% 5.7 % (0-10); NRBC Flagged by Analyzer 0 % (0-5); Neutrophil # 6.69 X10^3/uL (2.7-7.7); Neutrophil % 63.1 % (47-70); Platelet Count 328 K/mm3 (150-450); RBC Distribution Width CV 14.7 % (11.6-14.6); RBC Distribution Width SD 42.2 fl (35.1-43.9); Red Blood Count 5.04 M/mm3 (4.2-5.4); White Blood Count 10.6 K/mm3 (4.4-11.0)
[2019-12-31 23:10] LABS: AST(SGOT) 20 U/L (15-37); Alanine Aminotransfer ALT/SGPT 31 U/L (13-56); Albumin, Serum 4.4 g/dL (3.2-5.0); Alkaline Phosphatase 128 U/L (45-117); Anion Gap 6 (5-15); BUN 12 mg/dL (7-18); Calcium,Total 9.7 mg/dL (8.5-10.1); Chloride 104 mmol/L (98-107); EST Glomerular Filtration Rate 110 mL/min (>60); Est Glom Filt Rate - Afr Amer 133 mL/min (>60); Estimated Creatinine Clearance 215.13 ml/min; Globulin 4.4 g/dL (2.2-4.2); Glucose 90 mg/dL (74-106); Lipase 98 U/L (73-393); Potassium 3.3 mmol/L (3.5-5.1); Protein, Total 8.8 g/dL (6.4-8.2); Sodium Level 137 mmol/L (136-145)
[2019-12-31 23:30] VITALS: BP 138/79; PULSE 84; RESP 17; O2SAT 99
== END 2019-12-31 23:45 | disposition home or self-care (01) ==
PROVIDERS: Emergency Provider Emergency Medicine; PCP Nurse Practitioner Family
DX: R10.84 Generalized abdominal pain (principal); K92.1 Melena; R19.7 Diarrhea, unspecified; E87.6 Hypokalemia; E66.9 Obesity, unspecified; M79.7 Fibromyalgia; E03.9 Hypothyroidism, unspecified; Z91.14 Patient's other noncompliance with medication regimen; Z79.899 Other long term (current) drug therapy; F17.200 Nicotine dependence, unspecified, uncomplicated
CPT/HCPCS: 80053; 83690; 85025; 99283

== ENCOUNTER 2021-02-20 18:58 | Emergency (ER) | payer MEDICAID, SELFPAY ==
[2021-02-20 18:58] VITALS: BP 150/92; PULSE 108; RESP 16; TEMP 36.3; O2SAT 96; BMI 44.4
[2021-02-20 19:45] LABS: Bacteria 0 SEEN /hpf (None Seen); Color, Urine Yellow (Yellow); Glucose, Dipstick Normal (Normal); Ketone-Dipstick Negative (Negative); Leukocyte Esterase-Dipstick Negative /ul (Negative); Mucous, Urine 0 SEEN /hpf (<or=2+); Nitrite-Dipstick Negative (Negative); Occult Blood-Urine 10 /ul (Negative); Protein-Dipstick 30 mg/dl (Negative); Specific Gravity, Urine 1.015 (1.002-1.030); Urine Bilirubin Dipstick Negative (Negative); Urine Clarity Sl. Cloudy (Clear); Urine Urobilinogen Normal (Normal); White Blood Cells 0 SEEN /hpf (0-5)
[2021-02-20 19:53] LABS: Red Blood Cells-Urine 0-5 SEEN /hpf (0-5); Squamous Epithelial Cells - UA 0-5 SEEN /hpf (5-10)
[2021-02-20 20:04] LABS: Absolute Lymphocyte Count 1.44 X10^3/uL (0.83-4.51); Absolute Neutrophil Count 8.2 X10^3/uL (2.0-7.7); Basophil# 0.03 X10^3/uL; Basophil% 0.3 % (0-1); Eosinophil# 0.01 X10^3/uL; Eosinophils% 0.1 % (0-5); Hematocrit 41.5 % (37-47); Hemoglobin 13.5 g/dL (12.0-15.0); Lymphocyte # 1.44 X10^3/ul (0.83-4.51); Lymphocyte % 14.5 % (19-41); Mean Corp Hgb Conc 32.5 g/dL (32-36); Mean Corpuscular Hgb 26.5 pg (27.0-32.0); Mean Corpuscular Volume 81.5 fL (81-99); Monocyte# 0.24 X10^3/uL; Monocyte% 2.4 % (0-10); NRBC Flagged by Analyzer 0 % (0-5); Neutrophil # 8.16 X10^3/uL (2.7-7.7); Neutrophil % 82.2 % (47-70); Platelet Count 348 K/mm3 (150-450); RBC Distribution Width CV 14.6 % (11.6-14.6); RBC Distribution Width SD 43.6 fl (35.1-43.9); Red Blood Count 5.09 M/mm3 (4.2-5.4); White Blood Count 9.9 K/mm3 (4.4-11.0)
[2021-02-20 20:21] LABS: AST(SGOT) 16 U/L (15-37); Alanine Aminotransfer ALT/SGPT 31 U/L (13-56); Albumin, Serum 3.9 g/dL (3.2-5.0); Alkaline Phosphatase 108 U/L (45-117); Anion Gap 8 (5-15); BUN 10 mg/dL (7-18); BUN/Creat Ratio 14.9 RATIO (10-20); Calcium,Total 9.6 mg/dL (8.5-10.1); Chloride 104 mmol/L (98-107); Creatinine, Serum 0.67 mg/dL (0.55-1.02); EST Glomerular Filtration Rate 115 mL/min (>60); Est Glom Filt Rate - Afr Amer 139 mL/min (>60); Estimated Creatinine Clearance 205.72 ml/min; Globulin 4.8 g/dL (2.2-4.2); Glucose 126 mg/dL (74-106); Lipase 80 U/L (73-393); Potassium 3.9 mmol/L (3.5-5.1); Protein, Total 8.7 g/dL (6.4-8.2); Sodium Level 137 mmol/L (136-145)
[2021-02-20 20:24] LABS: Internal QC Validated? YES +Cl - CLEAR BKGD
[2021-02-20 20:25] LABS: Pregnancy, Serum, hCG Quali. NEGATIVE Negative
[2021-02-20 20:50] VITALS: BP 138/76; PULSE 82; RESP 16; O2SAT 98
[2021-02-20] MEDS: Ondansetron 4 MG/2 ML Vial IV (20:55)
[2021-02-20] MEDS: Mag Hydrox/Al Hydrox/Simeth 30 ML UDC PO (21:29)
[2021-02-20 22:13] VITALS: PULSE 78; RESP 15; O2SAT 97
[2021-02-20 22:14] VITALS: BP 134/80; PULSE 78; RESP 14; O2SAT 97
--- NOTE | 2021-02-23 15:52 | ED.VIS.GI ---
HPI HPI - GI History of Present Illness Chief Complaint: Abd Pain Narrative Narrative: 24-year-old female presenting with nausea, vomiting, epigastric pain. She denies fever or chills. She denies urinary complaints. She denies change in taste or smell, myalgias, chills. States he has a history of GERD. She has no history of gallbladder disease nor does she have history of pancreatitis. PFSH PFS Medical History Depression Obesity Home Medications dicyclomine 20 mg PO Q6H PRN #20 cap 12/31/19 [Rx Last Taken Unknown] promethazine 25 mg PO Q6H PRN PRN #10 tab 12/31/19 [Rx Last Taken Unknown] famotidine [Pepcid] 20 mg PO DAILY PRN #20 tab 02/20/21 [Rx Last Taken Unknown] pantoprazole 20 mg PO DAILY #30 tab 02/20/21 [Rx Last Taken Unknown] Allergy/AdvReac Type Severity Reaction Status Date / Time No Known Allergies Allergy Verified 02/20/21 19:00 Social History Smoking Status: Current every day smoker tobacco type: cigarettes ROS ROS ED Constitutional Constitutional ED: Denies chills, fever(s) or sweats Eyes Eyes: Denies blurry vision or change in vision ENT ENT ED: Denies ear pain, rhinorrhea or sore throat Cardiovascular Cardiovascular: Denies chest pain, palpitations or racing heartbeat Respiratory/Chest Respiratory/Chest: Denies cough, dyspnea or sputum Gastrointestinal Gastrointestinal: Reports abdominal pain, nausea and vomiting; Denies constipation or diarrhea Genitourinary Genitourinary ED: Denies dysuria, hematuria or urinary frequency Musculoskeletal Musculoskeletal: Denies arthralgias, myalgias or neck pain Integumentary Denies abscess, Abrasions or rash Neurologic Neurologic: Denies headache(s), paresthesias or weakness Psychiatric Psychiatric: Denies anxiety, depression, suicidal ideation or suicidal thoughts Endocrine Endocrinology: Denies polydipsia or polyuria EXAM Physical Exam Const Positive well nourished General Appearance ED: NAD; Negative for pallor HEENT Reports normocephalic, head/scalp atraumatic and moist mucous membranes Eyes PERRL and EOMs intact bilaterally General Eye ED: Negative for scleral icterus Neck no lymphadenopathy and supple Chest Wall inspection of chest normal and palpation of chest normal Resp normal respiratory effort and clear to auscultation bilaterally Auscultation: Negative for rales, rhonchi or wheezes Cardio regular rate and regular rhythm GI normal to inspection, nondistended, normoactive bowel sounds and non-distended GI Narrative: Mild epigastric tenderness Auscultation: normoactive bowel sounds Palpation: soft Narrative: Deferred Back/Spine no CVA tenderness Extremity normal to inspection Neuro oriented x3 and CN's II-XII intact bilaterally Sensorium / Orientation: alert Motor Exam: strength 5/5 throughout Psych mental status grossly normal Attitude: No agitated Skin no rashes or lesions noted and no wounds General Skin Exam: Negative for jaundice or pallor MDM MDM MDM Narrative Medical decision making narrative: Patient presented with epigastric pain and nausea and vomiting. She had lab work performed which was all within normal limits. She is given antiemetics and feels improved. She still has some mild epigastric discomfort. Based on her lab work and vital signs as well as her abdominal exam I do not believe she needs imaging at this time. She was given a GI cocktail with relief of her symptoms. Patient will be discharged home with antiemetics and will follow up with her PCP as needed. Patient given return precautions. Impression: 1. Epigastric pain Discharge Plan Triage Chief Complaint: Abd Pain ED Provider: Lowell Huff Dx/Rx/DC Orders Instructions: ED PEPTIC ULCER vs GASTRITIS Prescriptions: New famotidine [Pepcid] 20 mg tablet 20 mg PO DAILY PRN (Reason: stomach upset) Qty: 20 RF: 0 pantoprazole 20 mg tablet,delayed release (DR/EC) 20 mg PO DAILY Qty: 30 RF: 0 No Action promethazine 25 MG tablet 25 mg PO Q6H PRN PRN (Reason: Nausea) Qty: 10 RF: 0 dicyclomine 10 MG capsule 20 mg PO Q6H PRN (Reason: abdominal pain) Qty: 20 RF: 0 Primary Care Provider: Eli Matos NP Referrals: Eli Matos NP, [employer] [Primary Care Provider] - Disposition Disposition: Home, self care Discharge Date/Time: 02/20/21 22:17
== END 2021-02-20 22:17 | disposition home or self-care (01) ==
PROVIDERS: Emergency Provider Student in an Organized Health Care Education/Training Program; PCP Nurse Practitioner Family
DX: R10.13 Epigastric pain (principal); R11.2 Nausea with vomiting, unspecified; K21.9 Gastro-esophageal reflux disease without esophagitis; F32.9 Major depressive disorder, single episode, unspecified; E66.9 Obesity, unspecified; Z68.41 Body mass index [BMI] 40.0-44.9, adult; Z79.899 Other long term (current) drug therapy; F17.210 Nicotine dependence, cigarettes, uncomplicated
CPT/HCPCS: 80048; 80076; 81001; 83690; 84703; 85025; 96374; 99285; A4216; J2405

== ENCOUNTER 2021-04-14 18:40 | Emergency (ER) | payer MEDICAID, SELFPAY ==
[2021-04-14 18:41] VITALS: BP 157/103; PULSE 115; RESP 16; TEMP 36.7; O2SAT 96; BMI 49.8
--- NOTE | 2021-04-14 19:02 | EDS_ITS ---
HPI History of Present Illness Chief Complaint: Numb/Ting Informant: patient Onset/Context/Timing Onset: Today Context: Gradual Onset Timing: Continuous Quality: paresthesias Location: central face Current Severity: Moderate Maximum Severity: Moderate Worsened by: nothing Relieved by: nothing Associated Symptoms Associated Symptoms: none Narrative Narrative: Patient states she has paresthesias that started in her mid forehead and later traveled down her nose to her upper lip stain in the midline. She currently has some mild paresthesias in that entire distribution and nowhere else. She states this started sometime after she had 2 energy drinks before work, and during work the symptoms continue to get worse. She is not exposed any chemicals or fumes. She denies any injuries or illnesses recently. She does not have a history of migraines and does not have a headache. She states she is also getting the visual disturbance that is kind of like a blurred line t hat she sees traces of whenever she moves her eyes back and forth. No visual field cuts, no peripheral neurologic symptoms in arms or legs, confusion, fevers lately. [facility] Medical History (Updated 04/14/21 @ 20:[address] Tereso Kilpatrick MD) Anxiety Depression Fibromyalgia Hypothyroidism Obesity Home Medications dicyclomine 20 mg PO Q6H PRN #20 cap 12/31/19 [Rx Last Taken Unknown] promethazine 25 mg PO Q6H PRN PRN #10 tab 12/31/19 [Rx Last Taken Unknown] famotidine [Pepcid] 20 mg PO DAILY PRN #20 tab 02/20/21 [Rx Last Taken Unknown] pantoprazole 20 mg PO DAILY #30 tab 02/20/21 [Rx Last Taken Unknown] levothyroxine 25 mcg PO DAILY #30 tab 04/14/21 [Rx Last Taken Unknown] Allergy/AdvReac Type Severity Reaction Status Date / Time No Known Allergies Allergy Verified 04/14/21 18:41 Social History Smoking Status: Current every day smoker tobacco type: cigarettes ROS ROS ED Constitutional Constitutional ED: Denies chills or fever(s) Eyes Eyes: Reports as per HPI and change in vision; Denies diplopia ENT ENT ED: Denies rhinorrhea or sore throat Cardiovascular Cardiovascular: Denies chest pain or palpitations Respiratory/Chest Respiratory/Chest: Denies cough or dyspnea Gastrointestinal Gastrointestinal: Denies abdominal pain, diarrhea, nausea or vomiting Genitourinary Genitourinary ED: Denies dysuria or hematuria Musculoskeletal Musculoskeletal: Denies back pain or neck pain Integumentary Denies abscess or rash Neurologic Neurologic: Reports as per HPI and paresthesias; Denies headache(s) or weakness Psychiatric Psychiatric: Reports anxiety; Denies behavioral changes, confusion or suicidal thoughts EXAM Physical Exam Const Vital Signs: 04/14/21 18:41 04/14/21 19:38 Temperature 98.0 F Temperature Source Temporal Pulse Rate 115 H Respiratory Rate 16 Respiratory Effort Normal Non-Labored Respiratory Pattern Normal Blood Pressure 157/103 H Blood Pressure Mean 121 Pulse Ox 96 Oxygen Delivery Method Room Air Positive well nourished and well developed General Appearance ED: well developed and NAD HEENT Reports moist mucous membranes normocephalic and atraumatic Eyes PERRL and EOMs intact bilaterally Neck full ROM and supple Resp normal respiratory effort and clear to auscultation bilaterally Cardio regular rate, regular rhythm and no murmurs GI non-tender and non-distended Auscultation: normoactive bowel sounds Palpation: soft Back/Spine no CVA tenderness General Back: other FROM Extremity normal to inspection General Extremety ED: Negative for edema, pulses abnormal or tenderness General Extremity: Negative for edema or pulses abnormal Neuro oriented x3, CN's II-XII intact bilaterally and no sensory deficits noted Neuro Narrative: Normal gait. Normal [id number] and [id number] bilaterally. NIHSS 1 for paresthesias only. However these are not in distribution compatible with stroke. Sensorium / Orientation: awake and alert Motor Exam: strength 5/5 throughout Skin no rashes or lesions noted and no wounds MDM MDM MDM Narrative Medical decision making narrative: Labs are unremarkable, except for elevated TSH. She states she was only on thyroid medication when she was . She started on 25 mcg daily and then was increased to 75 mcg daily. I will start her on 25. I did give her a dose of Reglan here, her numbness and tingling is completely gone. An atypical migraine I suppose is in the differential. Patient also offers prior to discharge that she has been worked up for lupus because of a malar butterfly rash, along with funny skin findings intermittently. Not sure how this is related, but I think putting her on thyroid medication to start with would be reasonable at this time. She is in agreement and comfortable with this plan and discharge home. Lab Data Attestation: I reviewed the patient's lab results. Labs: Laboratory Results - last 24 hr 04/14/21 04/14/21 19:30 19:30 WBC 12.4 H RBC 4.92 Hgb 13.3 Hct 40.1 MCV 81.5 MCH 27.0 MCHC 33.2 RDW Std Deviation 42.0 RDW Coeff of [place] 14.3 Plt Count 329 MPV 10.3 Immature Gran % (Auto) 0.300 Neut % (Auto) 63.0 Lymph % (Auto) 27.2 [place] % (Auto) 6.7 Eos % (Auto) 2.4 Baso % (Auto) 0.4 Absolute Neuts (auto) 7.8 H Absolute Lymphs (auto) 3.37 Nucleated RBC % 0 Sodium 136 Potassium 3.5 Chloride 104 Carbon Dioxide 25.0 Anion Gap 7 BUN 11 Creatinine 0.62 Estim Creat Clear Calc 247.16 Est GFR (MDRD) Af Amer 153 Est GFR (MDRD) Non-Af 126 BUN/Creatinine Ratio 17.8 Glucose 90 Calcium 9.1 TSH 5.01 H Discharge Plan Triage Chief Complaint: Numb/Ting ED Provider: Tereso Kilpatrick Dx/Rx/DC Orders Clinical Impression: Facial paresthesia, Hypothyroid Instructions: ED Hypothyroidism, ED Paraesthesias Prescriptions: New levothyroxine 25 mcg tablet 25 mcg PO DAILY Qty: 30 RF: 0 No Action promethazine 25 MG tablet 25 mg PO Q6H PRN PRN (Reason: Nausea) Qty: 10 RF: 0 dicyclomine 10 MG capsule 20 mg PO Q6H PRN (Reason: abdominal pain) Qty: 20 RF: 0 famotidine [Pepcid] 20 mg tablet 20 mg PO DAILY PRN (Reason: stomach upset) Qty: 20 RF: 0 pantoprazole 20 mg tablet,delayed release (DR/EC) 20 mg PO DAILY Qty: 30 RF: 0 Primary Care Provider: Eli Matos NP Referrals: Eli Matos NP, [employer] [Primary Care Provider] - 1-2 Weeks Disposition Disposition: Home, Self Care
[2021-04-14] MEDS: Metoclopramide 10 MG/2 ML Vial 2.5 MG IV (19:34)
[2021-04-14 19:59] LABS: Absolute Lymphocyte Count 3.37 X10^3/uL (0.83-4.51); Absolute Neutrophil Count 7.8 X10^3/uL (2.0-7.7); Basophil# 0.05 X10^3/uL; Basophil% 0.4 % (0-1); Eosinophils% 2.4 % (0-5); Hematocrit 40.1 % (37-47); Hemoglobin 13.3 g/dL (12.0-15.0); Lymphocyte # 3.37 X10^3/ul (0.83-4.51); Lymphocyte % 27.2 % (19-41); Mean Corp Hgb Conc 33.2 g/dL (32-36); Mean Corpuscular Volume 81.5 fL (81-99); Mean Platelet Vol. 10.3 fl (6.2-12.0); Monocyte# 0.83 X10^3/uL; Monocyte% 6.7 % (0-10); NRBC Flagged by Analyzer 0 % (0-5); Neutrophil # 7.78 X10^3/uL (2.7-7.7); Platelet Count 329 K/mm3 (150-450); RBC Distribution Width CV 14.3 % (11.6-14.6); Red Blood Count 4.92 M/mm3 (4.2-5.4); White Blood Count 12.4 K/mm3 (4.4-11.0)
[2021-04-14 20:11] LABS: Anion Gap 7 (5-15); BUN 11 mg/dL (7-18); BUN/Creat Ratio 17.8 RATIO (10-20); Calcium,Total 9.1 mg/dL (8.5-10.1); Chloride 104 mmol/L (98-107); Creatinine, Serum 0.62 mg/dL (0.55-1.02); EST Glomerular Filtration Rate 126 mL/min (>60); Est Glom Filt Rate - Afr Amer 153 mL/min (>60); Estimated Creatinine Clearance 247.16 ml/min; Glucose 90 mg/dL (74-106); Potassium 3.5 mmol/L (3.5-5.1); Sodium Level 136 mmol/L (136-145); Thyroid Stim Hormone (TSH) 5.01 uIU/mL (0.358-3.74)
== END 2021-04-14 21:14 | disposition home or self-care (01) ==
PROVIDERS: Emergency Provider Emergency Medicine; PCP Nurse Practitioner Family
DX: E03.9 Hypothyroidism, unspecified (principal); R20.2 Paresthesia of skin; E66.9 Obesity, unspecified; Z68.42 Body mass index [BMI] 45.0-49.9, adult; F32.9 Major depressive disorder, single episode, unspecified; F41.9 Anxiety disorder, unspecified; M79.7 Fibromyalgia; Z79.899 Other long term (current) drug therapy; F17.210 Nicotine dependence, cigarettes, uncomplicated
CPT/HCPCS: 80048; 84443; 85025; 96374; 99285; A4216